=== PATIENT | female | born 1950 | race Caucasian/White ===

== ENCOUNTER 2019-05-07 12:45 | Outpatient (CLI) | payer OTHER ==
[~2019-05-07 12:45] MED LIST: COZAAR100 MG; VERAPAMIL HCL120 M1
== END 2019-05-07 12:55 | disposition home or self-care (01) ==
LOC: RAD 12:45
DX: M17.12 Unilateral primary osteoarthritis, left knee (principal)

== ENCOUNTER 2020-11-26 11:28 | Outpatient (CLI) | payer OTHER | END 2020-11-26 11:33 | disposition home or self-care (01) | LOC: RAD 11:28 | PROVIDERS: ATTEND Physical Medicine & Rehabilitation | DX: M17.12 Unilateral primary osteoarthritis, left knee (principal) ==

== ENCOUNTER 2020-12-12 11:40 | Outpatient (CLI) | payer OTHER | END 2020-12-12 11:47 | disposition home or self-care (01) | LOC: RAD 11:40 | PROVIDERS: ATTEND Physical Medicine & Rehabilitation | DX: M17.11 Unilateral primary osteoarthritis, right knee (principal) ==

== ENCOUNTER 2022-04-14 12:49 | Outpatient (CLI) | payer OTHER | END 2022-04-14 12:53 | disposition home or self-care (01) | LOC: RAD 12:49 | PROVIDERS: ATTEND Physical Medicine & Rehabilitation | DX: M17.12 Unilateral primary osteoarthritis, left knee (principal) ==

== ENCOUNTER 2022-11-15 10:24 | Outpatient (CLI) | payer OTHER | END 2022-11-15 10:32 | disposition home or self-care (01) | LOC: RAD 10:24 | PROVIDERS: ATTEND Physical Medicine & Rehabilitation | DX: M17.11 Unilateral primary osteoarthritis, right knee (principal); M25.561 Pain in right knee ==

== ENCOUNTER 2023-07-13 12:44 | Outpatient (CLI) | payer OTHER | END 2023-07-13 12:49 | disposition home or self-care (01) | LOC: RAD 12:44 | PROVIDERS: ATTEND Physical Medicine & Rehabilitation | DX: M17.12 Unilateral primary osteoarthritis, left knee (principal) ==

== ENCOUNTER 2023-12-02 10:40 | Outpatient (CLI) | payer OTHER | END 2023-12-02 10:47 | disposition home or self-care (01) | LOC: RAD 10:40 | PROVIDERS: ATTEND Physical Medicine & Rehabilitation | DX: M25.562 Pain in left knee (principal) ==

== ENCOUNTER 2024-08-16 12:25 | Outpatient (CLI) | payer OTHER | END 2024-08-16 12:28 | disposition home or self-care (01) | LOC: RAD 12:25 | PROVIDERS: ATTEND Physical Medicine & Rehabilitation | DX: M17.11 Unilateral primary osteoarthritis, right knee (principal); M17.12 Unilateral primary osteoarthritis, left knee ==